=== PATIENT | female | born 1930 | race Caucasian/White ===

== ENCOUNTER 2020-05-25 14:39 | Inpatient (IN) | payer MEDICARE ==
[~2020-05-25] VITALS: Ht 160 cm; Wt 49.4 kg
--- NOTE | 2020-05-25 15:11 | EKG ---
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
[2020-05-25] MEDS ORDERED: DEXTROSE 50% 25 GM / 50ML DISP.SYRIN. IV ONE (15:15)
[2020-05-25] MEDS ORDERED: IV NORMAL SALINE 1,000ML 1,000 ML IV ONE (15:15)
[2020-05-25 15:21] LABS: BASO # 0.1 x10^3/uL (0.0-0.2); BASO % 1 % (0-3); EOS % 0 % (0-3); HEMATOCRIT 42.4 % (36.0-47.0); HEMOGLOBIN 13.4 g/dL (12.0-15.5); LYMPH # 3.2 x10^3/uL (1.0-4.8); LYMPH % 41 % (24-48); MEAN CORPUSCULAR HEMOGLOBIN 29 pg (25-35); MEAN CORPUSCULAR HGB CONC 32 g/dL (31-37); MEAN CORPUSCULAR VOLUME 91 fL (79-100); MONO # 0.6 x10^3/uL (0.0-1.1); MONO % 8 % (0-9); NEUT # 3.8 x10^3uL (1.8-7.7); NEUT % 50 % (31-73); PLATELET COUNT 135 x10^3/uL (140-400); RED BLOOD COUNT 4.65 x10^6/uL (3.50-5.40); RED CELL DISTRIBUTION WIDTH 14.8 % (11.5-14.5); WHITE BLOOD COUNT 7.7 x10^3/uL (4.0-11.0)
[2020-05-25 15:24] LABS: SALIC < 2.8 mg/dL (2.8-20.0)
[2020-05-25 15:25] LABS: ACETAMIN < 2.0 mcg/mL (10-30)
[2020-05-25 15:27] LABS: ALBUMIN 3.7 g/dL (3.4-5.0); ALBUMIN/GLOBULIN RATIO 0.9 (1.0-1.7); CALCIUM 9.1 mg/dL (8.5-10.1); CREATININE 1.5 mg/dL (0.6-1.0); GFR 32.7; POTASSIUM 3.9 mmol/L (3.5-5.1); TOTAL BILIRUBIN 1.2 mg/dL (0.2-1.0); TOTAL PROTEIN 7.7 g/dL (6.4-8.2)
--- NOTE | 2020-05-25 15:37 | RAD ---
EXAM: Head CT without contrast. HISTORY: Left facial droop. TECHNIQUE: Computed tomographic images of the head were obtained without contrast. *One or more of the following individualized dose reduction techniques were utilized for this examina tion: 1. Automated exposure control. 2. Adjustment of the mA and/or kV according to patient size. 3. Use of iterative reconstruction technique. COMPARISON: None. FINDINGS: There is no hemorrhage. There is no mass effect or midline shift. There is ventricular enla rgement due to cerebral atrophy. The ventricular size is not greater than expected for cerebral volum e to suggest hydrocephalus. There is extensive hypodensity throughout the cerebral white matter, most commonly due to chronic sma ll vessel disease. There is a chronic lacunar infarct involving the right thalamus and adjacent inter nal capsule. The orbits and visualized paranasal sinuses and mastoid air cells are unremarkable. Ther e is no calvarial lesion. IMPRESSION: 1. No acute intracranial finding. Note is made that MRI is more sensitive for acute infarction. 2. Extensive cerebral white matter changes, likely due to chronic small vessel disease. 3. Cerebral atrophy with compensatory enlargement of the ventricles. 4. Chronic infarct within the right thalamus and adjacent internal capsule. Electronically signed by: Rosaline Weldon MD (05/25/2020 3:35 PM) [id number]
[2020-05-25] MEDS ORDERED: IV 1/2 NORMAL SALINE 1,000 ML IV ONE (15:45)
--- NOTE | 2020-05-25 15:53 | PHYS DOC ---
General Adult EDM: Chief Complaint: NEURO SYMPTOMS/DEFICITS HPI: HPI: 89-year-old female past medical history significant for Alzheimer's dementia, hypertension, osteoarthritis, mitral valve disease and history of dysphagia (on pured diet), presents to the ED from [facility], concern for left facial droop, last known well was dinner the night before (nurse recognized the symptoms the morning when patient woke up). snf documents reviewed. Pt is normally not alert at baseline (suspect this is a mistake)? but ambulates with assistance. Is a DNR. Med list not in documents provided. Glucose 78 on arrival. Review of Systems: Review of Systems: Review of systems unable due to dementia Current Medications: Current Meds: Current Medications Medications (Trade) Dose Ordered Sig/Leslie Start Time Stop Time Status Last Admin Dose Admin Dextrose (Dextrose 50%-Water Syringe) 25 gm 1X ONCE 05/25/20 15:15 05/25/20 15:16 DC 05/25/20 15:27 25 GM Sodium Chloride 1,000 ml @ 75 mls/hr 1X ONCE 05/25/20 15:45 05/26/20 05:04 Allergies: Allergies: Allergies Coded Allergies Type Severity Reaction Last Updated Verified No Known Drug Allergies 05/25/20 No Physical Exam: PE: Constitutional: Well developed, well nourished, no acute distress, non-toxic appearance. HENT: Normocephalic, atraumatic, Eyes: EOMI, conjunctiva normal, no discharge. Neck: Normal range of motion, supple, Cardiovascular: S1/2 present, regular rhythm Lungs & Thorax: Speaking-sometimes clear coherent speech, other times mumbling, bilateral equal chest rise, no tachypnea or increased work of breathing Abdomen: soft, no tenderness, Skin: Warm, dry, no erythema, no rash. [] Back: No tenderness, no CVA tenderness. [] Extremities: No tenderness, no cyanosis, no edema Neurologic: Alert to voice/localizes to pain, not oriented, both legs and left arm fall to gravity, squeezes my hand with her left hand, able to keep her right arm up (I'd be surprised if pt ambulated), responds to pain, 14 points NIH Stroke Scale -although unsure pts' baseline over LEs and LUE Psychologic: Affect normal, mood nadya Current Patient Data: Labs: Laboratory Tests Test 05/25/20 14:50 White Blood Count 7.7 x10^3/uL (4.0-11.0) Red Blood Count 4.65 x10^6/uL (3.50-5.40) Hemoglobin 13.4 g/dL (12.0-15.5) Hematocrit 42.4 % (36.0-47.0) Mean Corpuscular Volume 91 fL (79-100) Mean Corpuscular Hemoglobin 29 pg (25-35) Mean Corpuscular Hemoglobin Concent 32 g/dL (31-37) Red Cell Distribution Width 14.8 % (11.5-14.5) H Platelet Count 135 x10^3/uL (140-400) L Neutrophils (%) (Auto) 50 % (31-73) Lymphocytes (%) (Auto) 41 % (24-48) Monocytes (%) (Auto) 8 % (0-9) Eosinophils (%) (Auto) 0 % (0-3) Basophils (%) (Auto) 1 % (0-3) Neutrophils # (Auto) 3.8 x10^3uL (1.8-7.7) Lymphocytes # (Auto) 3.2 x10^3/uL (1.0-4.8) Monocytes # (Auto) 0.6 x10^3/uL (0.0-1.1) Eosinophils # (Auto) 0.0 x10^3/uL (0.0-0.7) Basophils # (Auto) 0.1 x10^3/uL (0.0-0.2) Prothrombin Time 10.4 SEC (9.4-11.4) Prothrombin Time INR 1.0 (0.9-1.1) Activated Partial Thromboplast Time 21 SEC (23-33) L Sodium Level 172 mmol/L (136-145) *H Potassium Level 3.9 mmol/L (3.5-5.1) Chloride Level 132 mmol/L (98-107) H Carbon Dioxide Level 30 mmol/L (21-32) Anion Gap 10 (6-14) Blood Urea Nitrogen 70 mg/dL (7-20) H Creatinine 1.5 mg/dL (0.6-1.0) H Estimated GFR (Cockcroft-Gault) 32.7 BUN/Creatinine Ratio 47 (6-20) H Glucose Level 103 mg/dL (70-99) H Calcium Level 9.1 mg/dL (8.5-10.1) Total Bilirubin 1.2 mg/dL (0.2-1.0) H Aspartate Amino Transferase (AST) 30 U/L (15-37) Alanine Aminotransferase (ALT) 41 U/L (14-59) Alkaline Phosphatase 99 U/L (46-116) Troponin I Quantitative < 0.017 ng/mL (0-0.055) Total Protein 7.7 g/dL (6.4-8.2) Albumin 3.7 g/dL (3.4-5.0) Albumin/Globulin Ratio 0.9 (1.0-1.7) L Salicylates Level < 2.8 mg/dL (2.8-20.0) L Salicylate Last Dose Date 05/25/20 Salicylate Last Dose Time 1500 Acetaminophen Level < 2.0 mcg/mL (10-30) L Acetaminophen Last Dose Date 05/25/20 Acetaminophen Last Dose Time 1500 EKG: EKG: Sinus rhythm at 70 bpm, left axis deviation, T wave inversions in 1, aVL, V5 and V6, normal intervals, inferior Q waves in leads III and aVF, Radiology/Procedures: Radiology/Procedures: IMAGING REPORT Signed PATIENT: TOLU BELCHER ACCOUNT: [id number] : 1930 LOCATION: ER AGE: 89 SEX: F EXAM STATUS: REG ER ORD. PHYSICIAN: OTTONIEL SCOTT DO REASON: left facial droop PROCEDURE: CT HEAD WO CONTRAST EXAM: Head CT without contrast. HISTORY: Left facial droop. TECHNIQUE: Computed tomographic images of the head were obtained without contrast. *One or more of the following individualized dose reduction techniques were utilized for this examination: 1. Automated exposure control. 2. Adjustment of the mA and/or kV according to patient size. 3. Use of iterative reconstruction technique. COMPARISON: None. FINDINGS: There is no hemorrhage. There is no mass effect or midline shift. The re is ventricular enlargement due to cerebral atrophy. The ventricular size is not greater than expected for cerebral volume to suggest hydrocephalus. There is extensive hypodensity throughout the cerebral white matter, most commonly due to chronic small vessel disease. There is a chronic lacunar infarct involving the right thalamus and adjacent internal capsule. The orbits and vi sualized paranasal sinuses and mastoid air cells are unremarkable. There is no calvarial lesion. IMPRESSION: 1. No acute intracranial finding. Note is made that MRI is more sensitive for acute infarction. 2. Extensive cerebral white matter changes, likely due to chronic small vessel disease. 3. Cerebral atrophy with compensatory enlargement of the ventricles. 4. Chronic infarct within the right thalamus and adjacent internal capsule. Electronically signed by: Rosaline Mclaughlin MD (05/25/2020 3:35 PM) [id number] DICTATED AND SIGNED BY: ROSALINE MCLAUGHLIN MD DATE: 05/25/20 1533 CC: OTTONIEL SCOTT DO; ALYSHA GREEN ~MTH0 0 Heart Score: Risk Factors: Risk Factors: DM, Current or recent (<one month) smoker, HTN, HLP, family history of CAD, obesity. Risk Scores: Score 0 - 3: 2.5% MACE over next 6 weeks - Discharge Home Score 4 - 6: 20.3% MACE over next 6 weeks - Admit for Clinical Observation Score 7 - 10: 72.7% MACE over next 6 weeks - Early Invasive Strategies Course & Med Decision Making: Course & Med Decision Making Pertinent Labs and Imaging studies reviewed. (See chart for details) Concern for left facial droop, not a tpa candidate due to LKW. Exam not consistent with a LVO sxs (facial droop, contralateral weakness). Labs w/hyponatremia and hypochloremia in a patient with dysphagia who is on a pured diet -likely given no free water. Will admit to Dr. Gonzales. No seizures, coma or tremors on exam. Patient DNR CODE STATUS. Dragon Disclaimer: Juan Disclaimer: This electronic medical record was generated, in whole or in part, using a voice recognition dictation system. Departure Departure: Impression: Primary Impression: Facial droop Additional Impressions: Hypernatremia Hyperchloremia Renal insufficiency Disposition: 09 ADMITTED INPT THIS HOSP Admitting Physician: Jaqui Gonzales Condition: CRITICAL Referrals: ALYSHA GREEN (PCP) OTTONIEL SCOTT DO May 25, 2020 15:53
[2020-05-25] MEDS ORDERED: IV DEXTROSE 5% 1,000 ML IV ONE (16:00)
[2020-05-25 16:16] LABS: AMPHETAMINE/METHAMPHETAMINE NEG (NEG); BARBITURATES NEG (NEG); BENZODIAZEPINES NEG (NEG); CANNABINOIDS NEG (NEG); COCAINE NEG (NEG); METHADONE NEG (NEG); OPIATES NEG (NEG); PHENCYCLIDINE NEG (NEG)
--- NOTE | 2020-05-25 16:21 | RAD ---
EXAM: Chest, single view. HISTORY: Pain. COMPARISON: None. FINDINGS: A frontal view of the chest obtained. There is increased opacity overlying the lateral left upper thorax likely due to asymmetric overlying artifact. No pleural effusion or pneumothorax is see n. There are small benign sclerotic changes within the proximal humeri. The heart is normal in size. IMPRESSION: Focal opacity overlying the lateral left upper lobe likely due to overlying artifact. Jimena rt-term radiographic follow-up can be performed to exclude infiltrate in this location. Electronically signed by: Rosaline Weldon MD (05/25/2020 4:19 PM) [id number]
[2020-05-25 16:34] LABS: BILIRUBIN,URINE NEG (NEG); CLARITY,URINE CLEAR; COLOR,URINE YELLOW; GLUCOSE,URINE 500 mg/dL (NEG); NITRITE,URINE NEG (NEG); WBC,URINE 0 /HPF (0-4)
[2020-05-25 16:35] LABS: BACTERIA,URINE 0 /HPF (0-FEW); SQUAMOUS EPITHELIAL CELL,UR OCC /LPF
--- NOTE | 2020-05-25 17:27 | NUR ---
JESENIA ARRIVED TO UNIT VIA EMS. PATIENTS VS OBTAINED AND ARE STABLE. PATIENT IS CONFUSED AND UNABLE TO COMPREHEND ADMISSION TEACHING. PATIENT IS RESTING IN BED AT THIS TIME. PT IS NPO.
[2020-05-25 18:09] VITALS: BP 135/63
[2020-05-25] MEDS: INSULIN LISPRO 300 UNITS/3 ML VIAL. SQ SCH (18:15)
[2020-05-25] MEDS ORDERED: DEXTROSE 50% 25 GM / 50ML DISP.SYRIN. IV PRN (18:15)
[2020-05-25] MEDS ORDERED: ACET500T68 PO (18:23)
[2020-05-25] MEDS ORDERED: BISA10SU4 RC (18:23)
[2020-05-25] MEDS ORDERED: LISI40TA6 PO (18:23)
[2020-05-25] MEDS ORDERED: MAGN296S68 PO (18:23)
[2020-05-25] MEDS ORDERED: SENN1TAB62 PO (18:25)
[2020-05-25] MEDS ORDERED: AMLO5TAB4 PO (18:25)
[2020-05-25] MEDS ORDERED: CARB15DR3 EACHEYE (18:25)
[2020-05-25] MEDS ORDERED: POLY17PO5 PO (18:25)
[2020-05-25 19:00] VITALS: BP 129/68
--- NOTE | 2020-05-25 19:28 | HP ---
ADMIT DATE: 05/25/2020 HISTORY OF PRESENT ILLNESS: The patient is an 89-year-old female patient, a resident at [facility], who was brought to the Emergency Room with concern for left facial droop, last known well was the nurse the night before. Nurse denies the symptom and in the morning when the patient woke up jail documents reviewed. The patient is normally not alert at baseline, but ambulates with assistance. She is a DNR. Her blood sugar on arrival was 78 mg. She was basically extensively investigated as the patient does not really give any useful information and has had lab work and imaging studies as well as an EKG. Her EKG showed that she was in sinus rhythm with left axis deviation, T-wave inversion in I, aVL, V5-V6 with normal intervals and inferior Q-waves in lead III and aVF. Her CT scan of the head showed there is no hemorrhage, no mass effect or midline shift. There is ventricular enlargement due to cerebral atrophy. The ventricular size is not greater than expected for cerebral volume to suggest hydrocephalus. There is extensive hypodensity throughout the cerebral white matter, most commonly due to chronic small vessel disease, ____ lacunar infarct involving the right thalamus and adjacent internal capsule, the visualized paranasal sinuses and mastoid air cells are unremarkable. There is no calvarial lesion. LABORATORY DATA: Her lab work showed her white cell count to be 7700, hemoglobin 13, hematocrit 42, MCV 91, and platelet count ____. Her chemistry showed a serum sodium 172, potassium 3.9, chloride 132, bicarbonate 30, anion gap of 10, BUN 70, creatinine 1.5, estimated GFR was 52 mL per minute and glucose was 103. Her total bilirubin, AST, ALT, alkaline phosphatase were normal. Total protein was 7.7, albumin was 3.7. The patient was admitted with severe dehydration, hypernatremia and acute kidney injury. PAST MEDICAL HISTORY: Significant for Alzheimer disease, rheumatic mitral valve disease, type 2 diabetes mellitus without complication, osteoarthritis, essential primary hypertension, dementia and dysphagia. PAST SURGICAL HISTORY: Unremarkable. ALLERGIES: She has no known drug allergies. MEDICATIONS: She is currently on Tylenol 650 mg every 6 hours, Dulcolax suppositories 10 mg rectally daily p.r.n. for constipation, lisinopril 40 mg once a day, magnesium citrate solution to give ____ mL by mouth as needed for constipation, milk of magnesia 30 mL p.o. daily p.r.n. for constipation, MiraLax 17 grams daily as needed. She is on Norvasc 5 mg once a day and Refresh Tears solution 1 drop to both eyes every 12 hours, she is on Senna Plus 2 tablets once a day. SOCIAL HISTORY: She is . Obviously, she does not smoke, drink alcohol or use any recreational drugs. She is mostly bed bound, wheelchair bound. She has a very caring . PHYSICAL EXAMINATION: GENERAL: On arrival to the Emergency Room, the patient was well and was clearly in no apparent respiratory distress. No pallor, jaundice or cyanosis. No lymphadenopathy, no thyromegaly. No jugular venous distention. No limb edema. VITAL SIGNS: Her heart rate was 74, blood pressure was 153/70, temperature was 98.2, respiratory rate was 20, and oxygen saturation was 94%. HEAD, EYES, EARS, NOSE AND THROAT: Normocephalic, atraumatic. NECK: Supple. HEART: Showed normal first and second heart sounds. No gallop or murmur. CHEST: Clear to auscultation. No crepitation or rhonchi. ABDOMEN: Distended, soft, nontender. NEUROLOGIC: She is demented and all her cranial nerves are grossly intact. EXTREMITIES: She moves upper extremities without difficulty. She is mostly bed bound, wheelchair bound. LABORATORY WORK: Her lab work showed a white cell count of 7700, hemoglobin 13.4, hematocrit 42, MCV 91, and platelet count 135,000. Her chemistry showed a serum sodium 172, potassium 3.9, chloride 132, bicarbonate 30, anion gap of 10, BUN 70, creatinine 1.5, estimated GFR was 32 mL per minute. Her glucose 103, calcium was 9.1. Total bilirubin, AST, ALT, alkaline phosphatase were normal. Total protein 7.7, albumin was 3.7. Her prothrombin time, INR and aPTT were normal. Drug screen was negative and urinalysis showed her urine was yellow, clear with a pH of 5.5, specific gravity of 1.030, large amount of protein, 500 mg of glucose. The urine was negative for ketones, there is moderate amount of blood, negative for nitrite and leukocyte esterase. There are 11-20 rbc's, 0 wbc's, and 0 bacteria. ASSESSMENT AND PLAN: In summary, this is an 89-year-old female patient with Alzheimer dementia, hypertension, osteoarthritis and dysphagia, currently on pureed diet, who came in with what seems to be left-sided facial droop; however, the patient's CT scan was unremarkable. She has severe hypernatremia, her serum sodium 172 as well as dehydration and acute kidney injury. My plan is to keep her n.p.o. for now, start her on D5W. I will add SCDs for DVT prophylaxis and a low dose sliding scale every 6 hours for now. JOSE LEON MD DR: KATIE/qing JOB#: [id number] / [id number]
[2020-05-25 20:00] VITALS: BP 137/73
[2020-05-25 21:00] VITALS: BP 137/73
[2020-05-25 22:00] VITALS: BP 146/64
[2020-05-25 23:00] VITALS: BP 146/64
[2020-05-26] VITALS (21 sets, daily range): BP systolic 109–152; BP diastolic 56–91
[2020-05-26] MEDS: INSULIN LISPRO 300 UNITS/3 ML VIAL. SQ SCH ×4 (00:15→18:15)
[2020-05-26] MEDS: IV DEXTROSE 5% 1,000 ML IV SCH ×2 (00:55→01:23)
[2020-05-26 06:26] LABS: HEMATOCRIT 36.3 % (36.0-47.0); HEMOGLOBIN 11.8 g/dL (12.0-15.5); RED BLOOD COUNT 4.05 x10^6/uL (3.50-5.40); RED CELL DISTRIBUTION WIDTH 14.4 % (11.5-14.5); WHITE BLOOD COUNT 6.8 x10^3/uL (4.0-11.0)
[2020-05-26 06:38] LABS: ALBUMIN 2.9 g/dL (3.4-5.0); ALBUMIN/GLOBULIN RATIO 0.7 (1.0-1.7); CALCIUM 8.1 mg/dL (8.5-10.1); CREATININE 1.1 mg/dL (0.6-1.0); GFR 46.8; POTASSIUM 3.1 mmol/L (3.5-5.1); TOTAL BILIRUBIN 1.3 mg/dL (0.2-1.0); TOTAL PROTEIN 6.9 g/dL (6.4-8.2)
[2020-05-26] MEDS: POTASSIUM CHLORIDE 40 MEQ in IV DEXTROSE 5% 1,000 ML IV SCH ×3 (08:13→22:35)
--- NOTE | 2020-05-26 14:21 | PN ---
DATE: 05/26/2020 SUBJECTIVE: The patient is resting, slightly propped up in bed, no apparent distress. She is mostly bedbound and wheelchair bound. She at times, sometimes gets worse, but difficult to understand. OBJECTIVE: GENERAL: When I examined her, she looked well, slightly pale, no jaundice or cyanosis, or thyromegaly. No jugular venous distention. No limb edema. VITAL SIGNS: Her heart rate was 71, blood pressure is 144/76, temperature was 97.3, respiratory rate was 13 and oxygen saturation was 96% on room air. HEAD, EYES, EARS, NOSE AND THROAT: Normocephalic, atraumatic. NECK: Supple. HEART: Normal first and second heart sounds. No gallop or murmur. CHEST: Clear to auscultation. No crepitation or rhonchi. ABDOMEN: Distended, soft, nontender. NEUROLOGIC: She is awake, alert. All her cranial nerves are grossly intact. She moves upper extremities to much great extent and lower extremities, she is mostly bedbound, wheelchair bound. Her intake and output are incompletely recorded. LABORATORY DATA: This morning showed a white cell count of 6800, hemoglobin 11.8, hematocrit 36, MCV 90 and platelet count 213,000. Her serum sodium was 160, potassium 3.1, chloride 124, bicarbonate 29, anion gap of 7, BUN 54, creatinine 1.1, estimated GFR was 46 mL per minute. Glucose 163, calcium was 8.1. Total bilirubin was 1.3. AST, ALT, alkaline phosphatase were normal. Total protein 6.9, albumin was 2.8. ASSESSMENT AND PLAN: This is an 89-year-old female patient with Alzheimer disease, who presented with what seems to be left facial droop; however, that has probably resolved. She was found to have marked dehydration, severe hypernatremia with a serum sodium of 172, this is improving. Acute kidney injury, also improving. Her creatinine came down from 1.8 to 1.1, serum sodium came down from 172 to 160. Plan is to continue with D5W with 40 mEq of potassium chloride. Continue with SCDs for DVT prophylaxis and also low dose sliding scale insulin. We will repeat her labs again tomorrow and once her electrolytes and kidney function stabilized, she can be discharged back to [facility]. JOSE LEON MD DR: Juana JOB#: [id number] / [id number]
[2020-05-26 18:15] LABS: CALCIUM 8.1 mg/dL (8.5-10.1); CREATININE 0.9 mg/dL (0.6-1.0); POTASSIUM 3.7 mmol/L (3.5-5.1)
[2020-05-27] VITALS (12 sets, daily range): BP systolic 95–135; BP diastolic 45–80
[2020-05-27] MEDS: INSULIN LISPRO 300 UNITS/3 ML VIAL. SQ SCH ×4 (00:15→19:45)
[2020-05-27] MEDS: POTASSIUM CHLORIDE 40 MEQ in IV DEXTROSE 5% 1,000 ML IV SCH ×3 (05:45→16:50)
--- NOTE | 2020-05-27 06:00 | NUR ---
Pt awake in bed at change of shift rambling untangleable words. Pt A&Ox1 occasionally, confused at baseline with hx of dementia. VSS. Pt turned Q2 hrs with wedge and oral care performed frequently. Pt NPO, speech eval ordered for today.
[2020-05-27 06:48] LABS: CALCIUM 7.6 mg/dL (8.5-10.1); GFR 52.2; POTASSIUM 3.8 mmol/L (3.5-5.1)
--- NOTE | 2020-05-27 10:09 | NUR ---
Nursing Note Pt in bed moans intermittently, speech is unintelligible. Pt is a turn with a wedge pillow, IV fluids running with IV in the left forearm. Responds to painful stimuli, winces and moans more with turns etc.
--- NOTE | 2020-05-27 12:49 | PN ---
DATE: 05/27/2020 ATTENDING PHYSICIAN: Dr. Gonzales. SUBJECTIVE: The patient is nonverbal. She is profoundly demented. She is at complete bed rest and requires total 24-hour care. OBJECTIVE FINDINGS: VITAL SIGNS: Blood pressure today is 109/54 mmHg, pulse of 73 and regular, temperature 99.3 degrees Fahrenheit, and oxygen saturation 97% on room air. HEENT: Head is without trauma. Pupils are reactive. Orbits are sunken. NECK: Supple. No stridor. LUNGS: Shallow respirations. CARDIOVASCULAR: Showed regular heart tones. No obvious gallops. ABDOMEN: Soft, no guarding. EXTREMITIES: Contracted and there is muscle wasting. She is nonambulatory. SKIN: Otherwise warm and dry. LABORATORY DATA: The obligatory CT of the head showed extensive atrophy with compensatory enlargement of the ventricles. There are chronic infarcts within the right thalamus and adjacent internal capsule. Sodium, which had been 172 mEq/L, is down to 151 and 143 mEq/L, with hypotonic D5W. The chloride concomitantly is down to 111, potassium 3.8 mEq, creatinine is 1.0 mg/dL. ASSESSMENT: 1. An 89-year-old female with profound dehydration. 2. Hypernatremia due to free water deficit. 3. Multiple infarcts on CT. 4. Profound dementia. 5. Generalized debilitation and decline. 6. Dysphagia, inability to hold fluids down. PLAN: 1. We will cut back to IV rate. 2. Serial chemistry. 3. We will have a miguel angel discussion with her . She remains a DNR. I do believe this patient is actively dying, and certainly, hospice would be recommended. I think the is reasonable. We will try to contact him later. LASHAY DEL ROSARIO MD DR: GRETCHEN/qing JOB#: [id number] / [id number]
[2020-05-28] MEDS: INSULIN LISPRO 300 UNITS/3 ML VIAL. SQ SCH ×4 (00:15→18:15)
[2020-05-28 05:00] VITALS: BP 106/63
[2020-05-28] MEDS: POTASSIUM CHLORIDE 40 MEQ in IV DEXTROSE 5% 1,000 ML IV SCH (06:13)
[2020-05-28 11:00] VITALS: BP 104/58
--- NOTE | 2020-05-28 13:10 | PN ---
DATE: 05/28/2020 ATTENDING PHYSICIAN: Dr. Del Rosario. SUBJECTIVE: The patient is poorly responsive. She is completely bedridden and demented. OBJECTIVE FINDINGS: VITAL SIGNS: Blood pressure today is 104/58, pulse is 82 and thready, temperature 99.2 degrees Fahrenheit, oxygen saturation 95% on room air. HEENT: Head is without trauma. Pupils are reactive. Sclerae nonicteric. Oropharynx clear. Mucous membranes dry. NECK: Supple. LUNGS: Shallow respirations. CARDIOVASCULAR: Showed regular heart tones. No gallops. ABDOMEN: Soft. EXTREMITIES: Without edema. NEUROLOGIC: Profoundly confused, bedridden, nonambulatory, poorly verbal. LABORATORY DATA: Her sodium was down to 143 mEq/L yesterday. Nonfasting blood sugar 110 mg/dL. ASSESSMENT: 1. An 89-year-old female with profound dehydration. 2. Hypernatremia due to free water deficits. 3. Multiple infarcts on CT. 4. Multi-infarct dementia. 5. Generalized debilitation and decline. 6. Dysphagia with inability to hold fluids down. She is a very high risk for aspiration. PLAN: 1. Continue IV rate. 2. Serial chemistries. 3. She is a DNR per advanced directive. 4. We have tried to get her to inpatient hospice. Unfortunately, she does not qualify at this time. LASHAY DEL ROSARIO MD DR: GRETCHEN/qing JOB#: [id number] / [id number]
[2020-05-28] MEDS: IV DEXTROSE 5 %-0.45 % NACL 1,000 ML IV SCH (13:28)
[2020-05-28 15:01] VITALS: BP 107/43
--- NOTE | 2020-05-28 16:35 | NUR ---
Bedside swallow done with patient, swallowing intact with [place] Thick liquids. No coughing or difficulty swallowing. pt swallows secretions and liquid from oral swabs without difficulty. Discussed with Dr Turner and he said it was okay to do NT liquids and a pureed diet and to sit up 90 degrees and if she coughs or chokes to stop and switch back to NPO.Will continue to monitor LFishman RN
--- NOTE | 2020-05-28 18:13 | NUR ---
Patients Shimon was in with patient and discussing hospice plan with [place]. decided on sending patient back to [facility] on hospice with Kelly[facility] after long discussion with Dr. Turner, case planner and hospice staff. Patient did tolerate pureed diet and nectar thickened liquids for dinner without any difficulty swallowing or coughing. Patient was opening mouth for next bite. Plan is to discharge tomorrow back to [facility] for hospice care. Family is on board for POC. Patient still only alert to self and moans out when care is provided but pleasantly says "Okay" when trying to reorient.
[2020-05-28 19:15] VITALS: BP 114/65
[2020-05-28 22:45] VITALS: BP 105/73
[2020-05-29] MEDS: INSULIN LISPRO 300 UNITS/3 ML VIAL. SQ SCH ×3 (00:05→08:23)
[2020-05-29] MEDS: IV DEXTROSE 5 %-0.45 % NACL 1,000 ML IV SCH (04:16)
[2020-05-29 06:15] VITALS: BP 86/58
[2020-05-29 08:00] VITALS: BP 115/62
[2020-05-29 11:00] VITALS: BP 94/59
--- NOTE | 2020-05-29 11:00 | NUR ---
Dr. Turner here to see patient. Per Dr Turner, pt is able to return to [facility] and will be going into [facility]. This RN called and notified him that pt will be returning to [facility] today via EMS. EMS has several transfers they are dealing with, so the wait may be a little while. Report was called to Shannan at [facility].
--- NOTE | 2020-05-29 14:24 | DS ---
DATE OF DISCHARGE: 05/29/2020 ATTENDING PHYSICIAN: Dr. Gonzales. FINAL DISCHARGE DIAGNOSES: 1. Dehydration. 2. Hypernatremia due to free water deficit. 3. Multi-infarct dementia. 4. Multiple infarcts on CT. 5. Generalized debilitation and decline. 6. Dysphagia, inability to adequately take down nutrition. 7. Hypernatremia, corrected. HISTORY AND PHYSICAL: The patient is an 89-year-old female with profound dementia. She was in decline. She has not drunk much and she was obtunded. When she presented to the ED, she was very dehydrated. Serum sodium was 170 mEq per liter. PHYSICAL EXAMINATION: Please see the dictated note. PERTINENT LABORATORY AND X-RAY STUDIES: Hemoglobin is 11.8 g/dL, white count 6800. Subsequent chemistries were drawn. Her sodium came down to 160, 150 and eventually down to 143 mEq/L. The urine drug screen was unremarkable. The head CT showed extensive cerebral atrophy, compensatory enlargement of ventricles, white matter changes and chronic small vessel disease. There is chronic infarct within the right thalamus and adjacent internal capsule. Chest x-ray showed no acute infiltrates identified. COURSE IN THE HOSPITAL: The patient was admitted and started on gentle IV hydration. She was at high risk of aspiration. Family was notified of her decline. Eventually, they did agree to hospice care. She was made a DNR. We tried to get her to [facility] Inpatient Hospice care. Unfortunately, she did not qualify. Therefore, after much discussion, the and the family were agreeable to send the patient back to [facility] for continued comfort measures at that facility. For now, we have got her on honey thickened liquids as tolerated. She is still completely bedridden and requires total care. Her home meds have been simplified. She will continue her eye drops and MiraLax, further morphine and Ativan. Supplemental oxygen will be provided by the hospice team. Her prognosis is terminal. She was discharged then from our hospital in stable condition for end of life care at [facility] with hospice care. Total discharge time 41 minutes. LASHAY DEL ROSARIO MD DR: GRETCHEN/qing JOB#: [id number] / [id number] JOSE Carbajal MD
--- NOTE | 2020-05-29 15:00 | NUR ---
Called Lorna at [facility], all crews are still working on transfers and will be here as soon as a truck becomes open.
--- NOTE | 2020-05-29 16:00 | NUR ---
[facility] is here to pharmacy picking tech patient to transport her to [place]. All belongings were sent with patient. IV was dc'd without complications.
== END 2020-05-29 16:00 | DRG 682 ==
LOC: ER 14:39 → ICU 15:54
PROVIDERS: ADMIT Internal Medicine; ATTEND Internal Medicine
DX: N17.9 Acute kidney failure, unspecified (principal); R53.2 Functional quadriplegia; E87.0 Hyperosmolality and hypernatremia; E86.0 Dehydration; E11.51 Type 2 diabetes mellitus with diabetic peripheral angiopathy without gangrene; E87.8 Other disorders of electrolyte and fluid balance, not elsewhere classified; F01.50 Vascular dementia, unspecified severity, without behavioral disturbance, psychotic disturbance, mood disturbance, and anxiety; F02.80 Dementia in other diseases classified elsewhere, unspecified severity, without behavioral disturbance, psychotic disturbance, mood disturbance, and anxiety; G30.9 Alzheimer's disease, unspecified; I05.9 Rheumatic mitral valve disease, unspecified; I10 Essential (primary) hypertension; I69.311 Memory deficit following cerebral infarction; M19.90 Unspecified osteoarthritis, unspecified site; Z51.5 Encounter for palliative care; Z66 Do not resuscitate; Z74.01 Bed confinement status; Z99.3 Dependence on wheelchair
CPT/HCPCS: 36415; 70450; 71045; 80048; 80053; 80307; 80329; 81001; 82947; 83930; 84484; 85025; 85027; 85610; 85730; 93005; 96361; 96374; J1815; J3480; 99285-25; G0480; J7030